=== PATIENT | female | born 1965 | race Caucasian/White ===

== ENCOUNTER 2016-06-15 11:07 | Emergency (ER) | payer OTHER ==
[~2016-06-15] VITALS: Ht 167.6 cm; Wt 93.0 kg
[~2016-06-15 11:07] MED LIST: ALLERGY10 MG PO; BENADRYL25 MG PO; CELEBREX200 MG PO; COLACE100 MG PO; CYCLOBENZAPRINE10 MG PO; DIVALPROEX SOD250 MG PO; DIVALPROEX SOD500 MG PO; FLONASE16 G1 BOTH NARES; FLOVENT 44120 INHALA IH; GABAPENTIN300 MG; HYDROCODON-ACE1 EAC7 PO; MEDROL DOSEPAK4 MG PO; METRONIDAZOLE60 GM TP; MOTRIN IB200 MG PO; NAPROSYN500 MG PO; NAPROXEN500 MG PO; NEURONTIN300 MG PO; NORCO 7.5/321 TABLET PO; PROAIR HFA8.5 GM IH; RELAFEN750 MG; TRAMADOL HCL50 MG PO; TYLENOL325 M1 PO; XANAX0.5 MG PO; ZANTAC150 M1 PO; ZANTAC150 MG PO
[2016-06-15] MEDS ORDERED: PERCOCET 5/31 TABLET PO (15:05)
[2016-06-15] MEDS ORDERED: WALKER (15:08)
[2016-06-15] MEDS ORDERED: WHEELCHAIR1 EACH MC (15:08)
[2016-06-15 15:21] VITALS: BP 130/98
== END 2016-06-15 16:11 | disposition home or self-care (01) ==
LOC: EME 11:07
PROC: 2W3QX1Z Immobilization of Right Lower Leg using Splint (ICD-10-PCS; principal; 2016-06-15)
DX: S82.61XA Displaced fracture of lateral malleolus of right fibula, initial encounter for closed fracture (principal); W01.0XXA Fall on same level from slipping, tripping and stumbling without subsequent striking against object, initial encounter; Y92.511 Restaurant or cafe as the place of occurrence of the external cause; F79 Unspecified intellectual disabilities; I10 Essential (primary) hypertension; G89.29 Other chronic pain
CPT/HCPCS: 73610; 99281; 99284